=== PATIENT | female | born 1965 | race Caucasian/White ===

== ENCOUNTER 2022-06-22 21:39 | Emergency (ER) | payer BC ==
[~2022-06-22] VITALS: Ht 175.3 cm; Wt 126.6 kg
[2022-06-22] MEDS ORDERED: ACET-683 PO (21:52)
[2022-06-22 22:49] LABS: RSV AMPLIFICATION NEGATIVE (NEGATIVE)
[2022-06-23] MEDS ORDERED: IBUPROFEN 600MG TAB PO ONE (08:55)
[2022-06-23] MEDS ORDERED: DOXY100C81 PO (08:55)
[2022-06-23 08:56] VITALS: BP 140/80
== END 2022-06-23 09:26 | disposition home or self-care (01) ==
LOC: M ED 21:39
DX: J18.9 Pneumonia, unspecified organism (principal); R11.10 Vomiting, unspecified